=== PATIENT | female | born 1960 | race Caucasian/White ===

== ENCOUNTER 2023-07-14 23:06 | Inpatient (IN) | payer OTHER, SELFPAY ==
[2023-07-14] VITALS (7 sets, daily range): BP systolic 147–161; BP diastolic 88–99; PULSE 71; RESP 18; TEMP 36.4; O2SAT 90–100; BMI 23.3
--- NOTE | 2023-07-14 23:19 | ED.ABDPAIN1 ---
HPI - Abdominal Pain General Chief Complaint: Nausea/Vomiting/Diarrhea Stated Complaint: BLOODY STOOL Time Seen by Provider: 07/14/23 23:15 History of Present Illness HPI narrative: presents complaining of abdominal pain that started in the last 2-3 hours. Associated with recurrent vomiting and diarrhea. Diarrhea was watery but now is bloody. No injury. No fever. Past surgery hysterectomy when she was age 20s MD elicited complaint: Reports abdominal pain Related Data Home Medications Medication Instructions Recorded Confirmed aspirin 81 mg tablet,delayed 81 mg PO DAILY 07/15/23 07/15/23 release (Adult Aspirin Regimen) carvedilol 3.125 mg tablet 3.125 mg PO BID 07/15/23 07/15/23 cholecalciferol (vitamin D3) 125 125 mcg PO DAILY 07/15/23 07/15/23 mcg (5,000 unit) capsule clotrimazole-betamethasone 1 1 applic topical DAILY 07/15/23 07/15/23 %-0.05 % topical cream lisinopril 2.5 mg tablet 2.5 mg PO DAILY 07/15/23 07/15/23 Allergies Allergy/AdvReac Type Severity Reaction Status Date / Time No Known Drug Allergies Allergy Verified 07/14/23 23:12 Review of Systems ROS Status of ROS 10 or more systems reviewed and unremarkable except as noted in history and below [facility] Social History Smoking status: Never smoker Exam Constitutional Vital Signs, click to edit/add: Last Vital Signs Temp 97.9 F 07/15/23 02:28 Pulse 71 07/14/23 23:09 Resp 18 07/14/23 23:09 BP 138/76 07/15/23 01:30 Pulse Ox 100 07/15/23 01:50 O2 Del Method Room Air 07/14/23 23:09 Common normals: average body habitus, oriented x3, healthy appearing, alert and well nourished General appearance: in distress Eye Common normals: EOMs intact bilaterally and conjunctivae normal Respiratory Common normals: normal respiratory effort, no retractions, no use of accessory muscles and clear to auscultation bilaterally Cardio Common normals: S1 normal heart sound and S2 normal heart sound Rate: tachycardic GI Rectal Exam - Female: tenderness Other: suprapubic tenderness Extremity Common normals: normal to inspection and full ROM Neuro Common normals: oriented x3, CN's II-XII intact bilaterally, moves all extremities and no focal motor deficits Psych Appearance: grossly normal Course Vital Signs Vital signs: Vital Signs Temperature 97.5 F L 07/14/23 23:09 Pulse Rate 71 07/14/23 23:09 Respiratory Rate 18 07/14/23 23:09 Blood Pressure 148/88 H 07/14/23 23:09 Pulse Oximetry 98 07/14/23 23:09 Oxygen Delivery Method Room Air 07/14/23 23:09 Temperature 97.9 F 07/15/23 02:28 Pulse Rate 71 07/14/23 23:09 Respiratory Rate 18 07/14/23 23:09 Blood Pressure 138/76 07/15/23 01:30 Pulse Oximetry 100 07/15/23 01:50 Oxygen Delivery Method Room Air 07/14/23 23:09 MDM - Abdominal Pain MDM Narrative Medical decision making narrative: patient presents with recurrent vomiting, abdominal pain and diarrhea. Diarrhea watery at first and then she also passed some blood. no fever. CBC WNL. CT with edema of the colon from the splenic flexure thru the mid sigmoid. Patient was quite painful requiring Dilaudid to treat her pain. Discussed with the hospitalist. Patient ordered cipro and flagyl and accepted for admission Lab Data Labs: Lab Results 07/14/23 Range/Units 23:15 WBC 8.4 (4.0-11.0) 10^3/uL RBC 4.16 L (4.20-5.40) 10^6/uL Hgb 13.0 (12.0-16.0) g/dL Hct 40.5 (36.0-48.0) % MCV 97.4 (81.0-99.0) fL MCH 31.3 (26.7-34.0) pg MCHC 32.1 (29.9-35.2) g/dL RDW 12.1 (11.0-15.0) % Plt Count 296 (150-450) 10^3/uL MPV 9.0 L (9.5-13.5) fL Neut % (Auto) 71.6 (43.0-75.0) % Lymph % (Auto) 17.0 L (20.5-60.0) % [place] % (Auto) 10.5 (1.7-12.0) % Eos % (Auto) 0.1 L (0.9-7.0) % Baso % (Auto) 0.6 (0.2-2.0) % Neut # (Auto) 6.0 (1.4-6.5) 10^3/uL Lymph # (Auto) 1.4 (1.2-3.8) 10^3/uL [place] # (Auto) 0.9 H (0.3-0.8) 10^3/uL Eos # (Auto) 0.0 (0.0-0.7) 10^3/uL Baso # (Auto) 0.1 (0.0-0.1) 10^3/uL Abs Immat Gran (auto) 0.02 (0.00-0.03) 10^3/uL Imm/Tot Granulo (auto) 0.2 (0.0-0.5) % Sodium 140 (136-145) mmol/L Potassium 3.6 (3.5-5.1) mmol/L Chloride 101 (98-107) mmol/L Carbon Dioxide 30.9 (21.0-32.0) mmol/L Anion Gap 11.7 BUN 12.0 (7.0-18.0) mg/dL Creatinine 0.96 (0.55-1.02) mg/dL Est GFR ( Amer) >60 (>=60) Est GFR (Non-Af Amer) 59 L (>=60) BUN/Creatinine Ratio 12.5 Glucose 109 H (74-106) mg/dL Lactate 0.9 (0.4-2.0) mmol/L Calcium 9.2 (8.5-10.1) mg/dL Total Bilirubin 0.4 (0.2-1.0) mg/dL AST 14 L (15-37) U/L ALT 20 (14-59) U/L Alkaline Phosphatase 64 (46-116) U/L Troponin I High Sens 5.7 (4.0-51.3) pg/mL Total Protein 7.1 (6.4-8.2) g/dL Albumin 4.1 (3.4-5.0) g/dL Globulin 3.0 g/dL Albumin/Globulin Ratio 1.4 Lipase 21.0 (16.0-77.0) U/L Imaging Data CT scan - abdomen: Radiologist's impression: SUZETTE PIERRE MRN: [id number] date: 1960 Sex: F Assigned Patient Location: ER Current Patient Location: ER Accession/Order Number: [id number] Exam Date: 07/14/2023 23:59 Report Date: 07/15/2023 02:26 At the request of: PARRISH CAMERON Procedure: CT angio abdomen pelvis EXAM: CT angio abdomen pelvis HISTORY: Ischemic bowel. COMPARISON: None. TECHNIQUE: CTA of the abdomen and pelvis obtained with IV contrast. FINDINGS: Lung bases are clear. No pleural or pericardial fluid. No adrenal mass or retroperitoneal lymphadenopathy. No obstructive uropathy. Renal enhancement is symmetrical. No biliary or pancreatic ductal dilatation. No evidence of bowel obstruction. There is circumferential wall thickening and edema of the colon from the splenic flexure through the mid sigmoid. No pneumatosis or pneumoperitoneum. Appendix has been removed. No pelvic adenopathy or ascites. Uterus is absent. Bladder is normal. The abdominal aorta is normal in course and caliber. Celiac artery and SMA are patent. MARIUSZ is patent. Bilateral renal arteries are patent. CT/CT angio abdomen pelvis IMPRESSION: 1. Uncomplicated long segment descending colitis. This could be infectious, inflammatory, or ischemic in nature. 2. Normal aortic caliber. Branch vessels are patent. 3. Prior appendectomy and hysterectomy. Electronically authenticated by: ROSAS TRIMBLE Date: 07/15/2023 02:26 Dictated By: Rosas Trimble M.D. Signed By: 07/15/23 0228 Discharge Plan Discharge Chief Complaint: Nausea/Vomiting/Diarrhea Clinical Impression: Acute colitis Patient Disposition: Admitted as Observation
[2023-07-14] MEDS: 0.9 % SODIUM CHLORIDE 1,000 ML 999 ML IV (23:29)
[2023-07-14] MEDS: ONDANSETRON PF 4 MG/2 ML VIAL IV (23:29)
[2023-07-14] MEDS: HYDROMORPHONE HCL 1 MG/ML CARTRIDGE IVP (23:29)
[2023-07-14 23:32] LABS: Basophils Absolute Auto 0.1 10^3/uL (0.0-0.1); Basophils Percent Auto 0.6 % (0.2-2.0); Eosinophils Percent Auto 0.1 % (0.9-7.0); Hematocrit 40.5 % (36.0-48.0); Immature Granulocytes Abs Auto 0.02 10^3/uL (0.00-0.03); Immature Granulocytes Pct Auto 0.2 % (0.0-0.5); Lymphocytes Absolute Auto 1.4 10^3/uL (1.2-3.8); Mean Corpuscular HGB Conc 32.1 g/dL (29.9-35.2); Mean Corpuscular Hemoglobin 31.3 pg (26.7-34.0); Mean Corpuscular Volume 97.4 fL (81.0-99.0); Monocytes Absolute Auto 0.9 10^3/uL (0.3-0.8); Monocytes Percent Auto 10.5 % (1.7-12.0); Neutrophils Percent Auto 71.6 % (43.0-75.0); Platelet Count 296 10^3/uL (150-450); Red Blood Count 4.16 10^6/uL (4.20-5.40); Red Cell Distribution Width 12.1 % (11.0-15.0); White Blood Count 8.4 10^3/uL (4.0-11.0)
[2023-07-14 23:50] LABS: Lactate/Lactic Acid 0.9 mmol/L (0.4-2.0)
[2023-07-15] VITALS (39 sets, daily range): BP systolic 90–162; BP diastolic 57–84; PULSE 57–97; RESP 16–20; TEMP 36.4–37; O2SAT 85–100; BMI 25.4
[2023-07-15] LABS: Alanine Aminotransferase 20 U/L (14-59); Albumin Globulin Ratio 1.4; Albumin Level 4.1 g/dL (3.4-5.0); Alkaline Phosphatase 64 U/L (46-116); Anion Gap 11.7; Aspartate Amino Transferase 14 U/L (15-37); BUN Creatinine Ratio 12.5; Bilirubin Total 0.4 mg/dL (0.2-1.0); Calcium 9.2 mg/dL (8.5-10.1); Carbon Dioxide 30.9 mmol/L (21.0-32.0); Chloride 101 mmol/L (98-107); Estimated GFR (African America >60 (>=60); Estimated GFR (Non-African Ame 59 (>=60); Glucose 109 mg/dL (74-106); Potassium 3.6 mmol/L (3.5-5.1); Sodium 140 mmol/L (136-145); Total Protein 7.1 g/dL (6.4-8.2); Troponin I High Sensitivity 5.7 pg/mL (4.0-51.3)
--- NOTE | 2023-07-15 00:02 | PC.NURSE ---
pt presents to ED because patient states that she had a gas station wrap around 6:30pm. pt states around 8pm pt suddenly had n/v and blood diarrhea. pt states she was having bright red blood from rectum. on arrival to ED pt anxious and crying. daughter at bedside and answer questions for patient. pt c/o lower abdominal pain as well. deneis any problems with urinating. normal bowel movements besides the diarrhea. pt denies hx of hemorrhoids or rectal bleeding in the past.
[2023-07-15] MEDS: HYDROMORPHONE HCL 1 MG/ML CARTRIDGE IVP (01:14)
[2023-07-15] MEDS: PROMETHAZINE HCL 25 MG/ML VIAL 12.5 MG IV (01:15)
[2023-07-15] MEDS: CIPROFLOXACIN IN 5 % DEXTROSE 400 MG/200 ML PIGGYBACK 200 MG IV (03:30)
[2023-07-15] MEDS: HYDROMORPHONE HCL 0.5 MG/0.5 ML SYRINGE IV ×2 (05:10→09:30)
[2023-07-15] MEDS: ONDANSETRON PF 4 MG/2 ML VIAL IV (05:10)
[2023-07-15] MEDS: DEXTROSE 5 %-0.45 % SOD CHLORD 1,000 ML 100 ML IV (05:11)
--- NOTE | 2023-07-15 05:31 | P.PN_ITS ---
Progress Note: Subjective Subjective Interval history: Patient is a 62-year-old female with history of HTN presenting with complaint of abdominal pain. Patient reports that she developed sudden onset of mid lower abdominal pain last night around 7:38 PM. She reports that this was followed by 2 bouts of nonbloody vomiting and subsequently developed significant diarrhea. Reports having approximately 10-12 bouts of diarrhea overnight which was bright red blood. Last BM was in the ED x2 upon initial arrival but has not had any recurrence since that time. She denies any fever or chills. No previous episodes prior to this. She denies any use of NSAIDs but does take a baby aspirin daily. Her last colonoscopy was approximately 5 to 6 years ago and thinks that she may have had polyps but does not recall. States that she was talking to her family nurse practitioner about having a repeat colonoscopy soon at the time of her last office visit but nothing scheduled to date. In the ED, vital signs were essentially stable and afebrile. Labs were completely normal including CBC, CMP, lipase, and troponin. CT abdomen and pelvis noted for uncomplicated descending colitis. Noted prior appendectomy and hysterectomy. Patient was treated in the ED with Dilaudid 1 mg x 2 given severe intractable abdominal pain, Zofran, Cipro and Flagyl. It was noted that patient reportedly desatted briefly after Dilaudid to approximately 90% RA as per RN at bedside therefore is requesting O2 nasal cannula. At the time seen, patient is lethargic but able to give some history although limited. Patient is being admitted to the hospitalist service for further management. Exam Constitutional Vital Signs, click to edit/add: Last Vital Signs Temp 97.6 F 07/15/23 03:48 Pulse 72 07/15/23 03:48 Resp 20 07/15/23 03:48 BP 162/84 H 07/15/23 03:48 Pulse Ox 97 07/15/23 03:48 O2 Del Method Room Air 07/15/23 03:48 Exam limitations: altered mental status General appearance: cooperative and well developed HENSC Common normals: normocephalic Head and scalp: normal to inspection and normocephalic Eye Common normals: PERRL and EOMs intact bilaterally General eye: normal appearance of both eyes Chest Common normals: inspection of chest normal and palpation of chest normal Cardio Common normals: no JVD, regular rate and regular rhythm Rate: regular rate Rhythm: regular rhythm Heart sounds: S1 normal and S2 normal GI Inspection: normal to inspection Auscultation: hyperactive bowel sounds Palpation: soft and tender Details: periumbilical Extremity Common normals: normal to inspection and full ROM Neuro Common normals: oriented x3 and CN's II-XII intact bilaterally Sensorium/orientation: lethargic Psych Common normals: mental status grossly normal Appearance: grossly normal Attitude: calm Progress Note: Objective Labs Labs: Short CBC 07/14/23 Range/Units 23:15 WBC 8.4 (4.0-11.0) 10^3/uL Hgb 13.0 (12.0-16.0) g/dL Hct 40.5 (36.0-48.0) % Plt Count 296 (150-450) 10^3/uL BMP 07/14/23 23:15 Sodium 140 Potassium 3.6 Chloride 101 Carbon Dioxide 30.9 BUN 12.0 Creatinine 0.96 Glucose 109 H Calcium 9.2 Liver Function 07/14/23 Range/Units 23:15 Total Bilirubin 0.4 (0.2-1.0) mg/dL AST 14 L (15-37) U/L ALT 20 (14-59) U/L Alkaline Phosphatase 64 (46-116) U/L Albumin 4.1 (3.4-5.0) g/dL Imaging CT scan - abdomen: Radiologist's impression: CT abdomen with uncomplicated descending colitis. Also noted for appendectomy and hysterectomy. Progress Note: A&P Assessment and Plan (1) Acute colitis: Plan Acute colitis involving descending colon -As noted per CT abdomen uncomplicated descending colitis -Maintain n.p.o., IV fluids -Received Cipro and Flagyl in the ED. Will place on Zosyn for now -As needed IV Dilaudid but will decrease to 0.5 mg every 4 hours as needed and add holding parameters. Given reported patient desatted to 90% RA, RN has requested for O2 nasal cannula which has been ordered. We will also add continuous pulse ox for now and will reassess further need in 24 hours Bright red blood per rectum/lower GI bleed -Noted in the setting of acute colitis -CBC was completely normal on admission. Will repeat CBC in a.m. and monitor H&H closely -Patient denies any NSAID use. Does take a baby aspirin daily which will be held for now -Check occult stool Nausea/vomiting/diarrhea -Secondary to acute colitis -As needed Zofran -Reports approximately 10-12 bouts of diarrhea at home. Had 2 BMs in the ED upon initial arrival, none since that time. Monitor for now -IV fluids HTN, controlled -Hold home Coreg, lisinopril -As needed IV hydralazine for now DVT prophylaxis SCDs for now Full code Telemedicine Attestation Telemedicine Attestation I conducted this encounter from [MD] via secure live, [id number] video conference with the patient, located at [facility] with [Fernando SHRESTHA]. Prior to the interview, the risks and benefits of telemedicine were discussed with the patient and verbal consent was obtained.
[2023-07-15] MEDS: METRONIDAZOLE/SODIUM CHLORIDE 500 MG/100 ML PREMIX 100 MG IV (05:50)
[2023-07-15 07:28] LABS: Hematocrit 33.9 % (36.0-48.0); Hemoglobin 11.2 g/dL (12.0-16.0); Mean Corpuscular Hemoglobin 31.8 pg (26.7-34.0); Mean Corpuscular Volume 96.3 fL (81.0-99.0); Mean Platelet Volume 8.7 fL (9.5-13.5); Platelet Count 224 10^3/uL (150-450); Red Blood Count 3.52 10^6/uL (4.20-5.40); Red Cell Distribution Width 12.3 % (11.0-15.0); White Blood Count 7.3 10^3/uL (4.0-11.0)
--- NOTE | 2023-07-15 08:50 | CM.NOTE ---
Rounds made with Dr. Ramírez. Asking for a drink water-currently NPO. Dr. Ramírez will review her labs to determine if she can have water. No plan for discharge today.
[2023-07-15] MEDS: LISINOPRIL 5 MG TABLET 2.5 MG PO (09:34)
[2023-07-15] MEDS: CARVEDILOL 3.125 MG TABLET PO ×2 (09:34→20:08)
[2023-07-15] MEDS: PIPERACILLIN SODIUM/TAZOBACTAM 3.375 GM in 0.9 % SODIUM CHLORIDE 50 ML IV ×2 (09:38→17:28)
[2023-07-15] MEDS: CLOTRIMAZOLE TOPICAL (09:39)
[2023-07-15] MEDS: BETAMETHASONE DIP TOPICAL (09:39)
--- NOTE | 2023-07-15 11:46 | P.HP_ITS ---
Pt seen and examined at 0730 this am - 07/15 Reviewed Notes from BENEFITS SPECIALIST - agreee with assessments Hx Takotsubo cardiomyopathy - pt states this has resolved but still follows with cardiology. Hypertension on admission likely pain related - better now. H&P: HPI History of Present Illness Chief complaint: BLOODY STOOL Narrative: Date/Time of exam: 07/15/23 1050 This is a 62-year-old female patient with a past medical history as outlined below including CAD s/p [place] 15 months ago with associated Takotsubo cardiomyopathy, hypertension, and health-related anxiety; who presented to the ED yesterday evening complaining of acute onset of severe abdominal pain with associated bloody diarrhea and vomiting. The patient reports feeling her at her baseline yesterday. She ate dinner around 6 PM but had abrupt onset of sharp stabbing suprapubic pain accompanied by diarrhea and 1 episode of vomiting lanny und 8 PM. She had multiple recurrent episodes of diarrhea which were initially red-tinged, but became increasingly bloody culminating in clear wild red watery stools. As her pain was severe and her diarrhea was persistent she presented to the ED for further evaluation. Work-up in the ED revealed unremarkable lab values on CBC and BMP. A CT of the abdomen was obtained which noted uncomplicated long-segment descending colitis that could be infectious, inflammatory, or ischemic in nature. The patient required several doses of IVP Dilaudid in the ED to obtain adequate pain control. She was given IVP antibiotics and admitted to the hospitalist service in observation for acute colitis, suspected infectious and further work up to assess for inflammatory colitis. At the time of my exam the patient is resting comfortably in bed. She reports that her pain is adequately controlled at this time but that it becomes very severe when her pain medication begins to wear off. She reports that she has had no further episodes of bloody diarrhea since the ED where she received IVPB Cipro and Flagyl. Admitting antibiotics was adjusted to Zosyn overnight for more [place] broad gram-negative and anaerobic coverage. The patient's hemoglobin has remained stable but has dropped from 13-11.2 overnight. She denies any shortness of breath, dizziness, or severe fatigue. Again, no further bloody stools for the last 12 hours. She remains afebrile since arrival in the ED. Nursing noted mild respiratory depression overnight after the patient received Dilaudid with O2 sats dropping to 90%. Supplemental O2 was added along with a continuous pulse ox monitoring. Patient has been started on a clear liquid diet and is tolerating this well so far. We will attempt to transition her pain control to p.o. preparations for improved pain management, but leave IVP Dilaudid ordered for breakthrough pain. General surgery consult for colonoscopy will be considered pending clinical course. Review of Systems ROS Status of ROS 10 or more systems reviewed and unremarkable except as noted in history and below [facility] Medical History (Updated 07/15/23 @ 14:44 by Carmen Wilson NP) CAD (coronary artery disease) ?I25.10 - Atherosclerotic heart disease of [place] coronary artery without angina pectoris (ICD-10) Social History Smoking status: Never smoker Meds Home Medications and Allergies Home Medications Medication Instructions Recorded Confirmed Type aspirin 81 mg tablet,delayed 81 mg PO DAILY 07/15/23 07/15/23 History release (Adult Aspirin Regimen) carvedilol 3.125 mg tablet 3.125 mg PO BID 07/15/23 07/15/23 History cholecalciferol (vitamin D3) 125 125 mcg PO DAILY 07/15/23 07/15/23 History mcg (5,000 unit) capsule clotrimazole-betamethasone 1 1 applic topical DAILY 07/15/23 07/15/23 History %-0.05 % topical cream lisinopril 2.5 mg tablet 2.5 mg PO DAILY 07/15/23 07/15/23 History Allergies Allergy/AdvReac Type Severity Reaction Status Date / Time No Known Drug Allergies Allergy Verified 07/14/23 23:12 Exam Constitutional Vital Signs, click to edit/add: Last Vital Signs Temp 97.8 F 07/15/23 06:00 Pulse 65 07/15/23 06:00 Resp 20 07/15/23 06:00 BP 130/71 07/15/23 09:34 Pulse Ox 97 07/15/23 11:43 O2 Del Method Nasal Cannula 07/15/23 11:22 O2 Flow Rate 1 07/15/23 11:22 Common normals: no apparent distress, oriented x3, alert and well nourished General appearance: cooperative Orientation/consciousness: Yes awake HENMO Common normals: normocephalic, head/scalp atraumatic, hearing grossly normal bilaterally, external ears normal, external nose normal and moist oral mucous membranes Head and scalp: normocephalic and atraumatic Face and sinus: normal facial exam Nose: external nose normal External ear: external ears normal Eye Common normals: PERRL, EOMs intact bilaterally, conjunctivae normal and no scleral icterus General eye: normal appearance of both eyes Alignment: alignment normal Eyelid: eyelids normal Conjunctiva: conjunctiva(e) normal Pupil: PERRL Neck & C-Spine Common normals: full ROM, supple and no JVD Chest Common normals: inspection of chest normal Chest: symmetrical chest wall rise Respiratory Common normals: normal respiratory effort, no retractions, no use of accessory muscles and clear to auscultation bilaterally Effort & inspection: able to speak in complete sentences Auscultation: clear to auscultation bilaterally Cardio Common normals: no JVD, regular rate, regular rhythm, S1 normal heart sound, S2 normal heart sound, no gallops, no clicks, no murmurs, no rub and peripheral pulses 2+ throughout Rate: regular rate Rhythm: regular rhythm Heart sounds: S1 normal and S2 normal Peripheral pulses: pulses 2+ throughout GI Common normals: Normal to inspection, nondistended, normoactive bowel sounds present, soft to palpation, no hepatosplenomegaly, no masses and no bruits Palpation: soft, tender (Primarily suprapubic, mild radiation bilaterally) and no hepatosplenomegaly; not firm, no guarding, not rigid and no rebound tenderness present Bladder/kidney exam: bladder normal to palpation Back & Pelvis Common normals: thoracic and lumbar spine normal to inspection Extremity Common normals: normal capillary refill and no pedal edema General: normal exam except as noted; no clubbing and no cyanosis Neuro Jeb Coma Scale: GCS not evaluated Common normals: oriented x3, CN's II-XII intact bilaterally, moves all extremities, no focal motor deficits and no sensory deficits noted Sensorium/orientation: awake and alert Speech: speech normal Motor exam: strength 5/5 throughout Psych Common normals: mental status grossly normal, thought process normal, affect normal and activity/motor behavior normal Thought process: normal thought process Results Labs Labs: Short CBC 07/14/23 07/15/23 Range/Units 23:15 07:16 WBC 8.4 7.3 (4.0-11.0) 10^3/uL Hgb 13.0 11.2 L (12.0-16.0) g/dL Hct 40.5 33.9 L (36.0-48.0) % Plt Count 296 224 (150-450) 10^3/uL BMP 07/14/23 23:15 Sodium 140 Potassium 3.6 Chloride 101 Carbon Dioxide 30.9 BUN 12.0 Creatinine 0.96 Glucose 109 H Calcium 9.2 Liver Function 07/14/23 Range/Units 23:15 Total Bilirubin 0.4 (0.2-1.0) mg/dL AST 14 L (15-37) U/L ALT 20 (14-59) U/L Alkaline Phosphatase 64 (46-116) U/L Albumin 4.1 (3.4-5.0) g/dL Pulse Oximetry Attestation: I have reviewed the pertinent pulse oximetry results. Imaging CT scan - abdomen: Attestation: I have reviewed the pertinent imaging results. Radiologist's impression: IMPRESSION: 1. Uncomplicated long segment descending colitis. This could be infectious, inflammatory, or ischemic in nature. 2. Normal aortic caliber. Branch vessels are patent. 3. Prior appendectomy and hysterectomy. Assessment and Plan Assessment and Plan (1) Acute colitis: Assessment and Plan: ACUTE * Adm inpatient * Strongly suspect infectious etiology (w/ bloody diarrhea), but inflammatory is not completely ruled out * Continue IVPB Zosyn for broad gram neg/anaerobic coverage * Likely d/c on PO cipro/flagyl * GI stool panel ordered - may not be able to obtain as diarrhea appears to have stopped * ESR, CRP, Stool calprotectin ordered to assess for inflammatory changes * See GI bleeding below * Consider Surgical consult for colonoscopy pending clinical course * Percocet PO for pain - reserve IVP Dilaudid for breakthrough pain not controlled by Percocet * CBC, CMP daily (2) Acute GI bleeding: Assessment and Plan: ACUTE * Associated w/ suspected infectious colitis - see above * 2gm drop in hgb overnight but bloody stool output appears to have stopped * May reflect hemodilution at least in part * Pt remains completely asymptomatic of blood loss anemia * Change IVF to LR at 75/hr as pt is now drinking clear liquids * Monitor w/ HH q6h * Consider PRBC transfusions for Hgb <7 or if signficantly symptomatic * Hold home ASA/NSAIDS for now while active bleeding is suspected * CBC daily (3) Intractable abdominal pain: Assessment and Plan: ACUTE * 2/2 colitis * Pain management as above (4) CAD (coronary artery disease): Assessment and Plan: CHRONIC * Continue home BB and ACEi * Hold ASA for now d/t active GI bleeding
[2023-07-15] MEDS: OXYCODONE HCL/ACETAMINOPHEN 5MG/325MG 2 TAB PO (12:08)
[2023-07-15 14:01] LABS: Hematocrit 33.9 % (36.0-48.0); Hemoglobin 10.9 g/dL (12.0-16.0)
[2023-07-15 15:07] LABS: C Reactive Protein 1.5 mg/dL (<=1.0)
[2023-07-15 15:39] LABS: Erythrocyte Sedimentation Rate 8 mm/hr (<=30)
[2023-07-15] MEDS: LACTATED RINGER'S SOLUTION 1,000 ML 75 ML IV (15:41)
[2023-07-15] MEDS: ALPRAZOLAM 0.25 MG TABLET PO (17:32)
[2023-07-15] MEDS: ACETAMINOPHEN 325 MG TABLET 650 MG PO (17:32)
[2023-07-15 17:58] LABS: Adenovirus F 40/41 NOT DETECTED (NOT DETECTE); Astrovirus NOT DETECTED (NOT DETECTE); Campylobacter NOT DETECTED (NOT DETECTE); Cryptosporidium NOT DETECTED (NOT DETECTE); Cyclospora cayetanensis NOT DETECTED (NOT DETECTE); Entamoeba histolytica NOT DETECTED (NOT DETECTE); Enteroaggregative E.coli NOT DETECTED (NOT DETECTE); Enteropathogenic E.coli NOT DETECTED (NOT DETECTE); Enterotoxigenic E. coli NOT DETECTED (NOT DETECTE); Giardia lamblia NOT DETECTED (NOT DETECTE); Norovirus GI/GII NOT DETECTED (NOT DETECTE); Plesiomonas shigelloides NOT DETECTED (NOT DETECTE); Rotavirus A NOT DETECTED (NOT DETECTE); Salmonella NOT DETECTED (NOT DETECTE); Sapovirus NOT DETECTED (NOT DETECTE); Shiga-like toxin-producing E.C NOT DETECTED (NOT DETECTE); Shigella/Enteroinvasive E.coli NOT DETECTED (NOT DETECTE); Vibrio NOT DETECTED (NOT DETECTE); Vibrio cholerae NOT DETECTED (NOT DETECTE); Yersinia enterocolitica NOT DETECTED (NOT DETECTE)
[2023-07-15 19:30] LABS: Hematocrit 30.9 % (36.0-48.0); Hemoglobin 10.1 g/dL (12.0-16.0)
[2023-07-16] VITALS (13 sets, daily range): BP systolic 122–170; BP diastolic 66–79; PULSE 57–63; RESP 16–18; TEMP 36.7–37.1; O2SAT 90–99
[2023-07-16] MEDS: PIPERACILLIN SODIUM/TAZOBACTAM 3.375 GM in 0.9 % SODIUM CHLORIDE 50 ML IV ×3 (00:40→17:20)
[2023-07-16] MEDS: OXYCODONE HCL/ACETAMINOPHEN 5MG/325MG 1 TAB PO ×2 (00:40→08:54)
[2023-07-16 00:43] LABS: Hematocrit 32.3 % (36.0-48.0); Hemoglobin 10.3 g/dL (12.0-16.0)
--- NOTE | 2023-07-16 04:38 | RESP.RT ---
decreased down to room air
[2023-07-16] MEDS: LACTATED RINGER'S SOLUTION 1,000 ML 75 ML IV ×2 (04:50→17:20)
[2023-07-16 06:47] LABS: Basophils Percent Auto 0.5 % (0.2-2.0); Eosinophils Percent Auto 0.2 % (0.9-7.0); Hematocrit 31.7 % (36.0-48.0); Hemoglobin 10.2 g/dL (12.0-16.0); Immature Granulocytes Abs Auto 0.01 10^3/uL (0.00-0.03); Immature Granulocytes Pct Auto 0.2 % (0.0-0.5); Lymphocytes Absolute Auto 1.5 10^3/uL (1.2-3.8); Lymphocytes Percent Auto 22.6 % (20.5-60.0); Mean Corpuscular HGB Conc 32.2 g/dL (29.9-35.2); Mean Corpuscular Hemoglobin 32.1 pg (26.7-34.0); Mean Corpuscular Volume 99.7 fL (81.0-99.0); Mean Platelet Volume 8.9 fL (9.5-13.5); Monocytes Absolute Auto 0.7 10^3/uL (0.3-0.8); Monocytes Percent Auto 10.8 % (1.7-12.0); Neutrophils Absolute Auto 4.2 10^3/uL (1.4-6.5); Neutrophils Percent Auto 65.7 % (43.0-75.0); Platelet Count 188 10^3/uL (150-450); Red Blood Count 3.18 10^6/uL (4.20-5.40); Red Cell Distribution Width 12.5 % (11.0-15.0); White Blood Count 6.4 10^3/uL (4.0-11.0)
[2023-07-16 07:14] LABS: Alanine Aminotransferase 20 U/L (14-59); Albumin Globulin Ratio 1.1; Albumin Level 2.7 g/dL (3.4-5.0); Alkaline Phosphatase 49 U/L (46-116); Anion Gap 11.1; Aspartate Amino Transferase 33 U/L (15-37); BUN Creatinine Ratio 6.6; Bilirubin Total 0.4 mg/dL (0.2-1.0); Calcium 7.9 mg/dL (8.5-10.1); Carbon Dioxide 28.2 mmol/L (21.0-32.0); Chloride 107 mmol/L (98-107); Estimated GFR (African America >60 (>=60); Estimated GFR (Non-African Ame >60 (>=60); Globulin 2.5 g/dL; Glucose 89 mg/dL (74-106); Potassium 3.3 mmol/L (3.5-5.1); Sodium 143 mmol/L (136-145); Total Protein 5.2 g/dL (6.4-8.2)
--- NOTE | 2023-07-16 08:40 | CM.NOTE ---
Rounding with Dr. Ramírez. Pt. tearful stating she is still having stools and is waiting on nursing to give her medications and cream . Dr. Ramírez discussed potential for staying until tomorrow unless she feels better this afternoon. Continue to follow patient for any anticipated discharge needs.
[2023-07-16] MEDS: LISINOPRIL 5 MG TABLET 2.5 MG PO (08:52)
[2023-07-16] MEDS: CARVEDILOL 3.125 MG TABLET PO ×2 (08:54→21:15)
[2023-07-16] MEDS: BETAMETHASONE DIP TOPICAL ×2 (08:55→21:14)
[2023-07-16] MEDS: CLOTRIMAZOLE TOPICAL ×2 (08:55→21:14)
[2023-07-16 10:08] LABS: Hematocrit 34.5 % (36.0-48.0)
[2023-07-16] MEDS: HYOSCYAMINE SULFATE 0.125 MG TAB.SUBL SL ×2 (11:17→17:20)
[2023-07-16] MEDS: ALPRAZOLAM 0.25 MG TABLET PO ×2 (12:50→21:15)
--- NOTE | 2023-07-16 13:12 | P.PN_ITS ---
Seen and eval this am [id number] Pt emotional - stress about condition as bleeding is persisting Exam with persistent LLQ tenderness Maintain current medications, agree wiht input and plan from [employer] Progress Note: Subjective Subjective Interval history: Date/Time of exam: 07/16/23 0912 The patient is sitting up in bed watching television at the time of my exam. She reports significant improvement in her pain control with p.o. Percocet and has not required dilauded x 12+ hrs. She notes onset of cramping pain to her lower abdomen after drinking liquids. She admits to significant anxiety about her health and was frequently tearful during my exam. She denies pain as a source of her tears but endorses anxiety. She notes that her bleeding per rectum has slowed down but does continue. I was able to visualize liquid bloody stool this morning. The patient notes a little more fecal content in the stools than yesterday, but they are still primarily bloody. Her hemoglobin remained stable overnight on every 6 hr H&H checks. The patient is eager to avoid a colonoscopy at this time, however since she continues to have migdalia bloody stools we have consulted general surgery for possible colonoscopy. We appreciate Dr. Gusman' assistance with this patient's care. Exam Constitutional Vital Signs, click to edit/add: Last Vital Signs Temp 98.2 F 07/16/23 05:04 Pulse 57 L 07/16/23 05:36 Resp 16 07/16/23 05:04 BP 170/74 H 07/16/23 08:52 Pulse Ox 98 07/16/23 11:16 O2 Del Method Room Air 07/16/23 11:16 O2 Flow Rate 1 07/16/23 04:38 Common normals: no apparent distress, oriented x3, alert and well nourished General appearance: cooperative Orientation/consciousness: Yes awake HENMT Common normals: normocephalic, head/scalp atraumatic, hearing grossly normal bilaterally, external ears normal, external nose normal and moist oral mucous membranes Head and scalp: normocephalic and atraumatic Face and sinus: normal facial exam Nose: external nose normal External ear: external ears normal Eye Common normals: PERRL, EOMs intact bilaterally, conjunctivae normal and no scleral icterus General eye: normal appearance of both eyes Alignment: alignment normal Eyelid: eyelids normal Conjunctiva: conjunctiva(e) normal Pupil: PERRL Chest Common normals: inspection of chest normal Chest: symmetrical chest wall rise Respiratory Common normals: normal respiratory effort, no retractions, no use of accessory muscles and clear to auscultation bilaterally Effort & inspection: able to speak in complete sentences Auscultation: clear to auscultation bilaterally Cardio Common normals: no JVD, regular rate, regular rhythm, S1 normal heart sound, S2 normal heart sound, no gallops, no clicks, no murmurs, no rub and peripheral pul ses 2+ throughout Rate: regular rate Rhythm: regular rhythm Heart sounds: S1 normal and S2 normal Peripheral pulses: pulses 2+ throughout GI Common normals: Normal to inspection, nondistended, normoactive bowel sounds present, soft to palpation, no hepatosplenomegaly, no masses and no bruits Palpation: soft, tender (Primarily suprapubic, mild radiation bilaterally) and no hepatosplenomegaly; not firm, no guarding, not rigid and no rebound tenderness present Bladder/kidney exam: bladder normal to palpation Extremity Common normals: normal capillary refill and no pedal edema General: normal exam except as noted; no clubbing and no cyanosis Neuro [place] Scale: GCS not evaluated Common normals: oriented x3, CN's II-XII intact bilaterally, moves all extremities, no focal motor deficits and no sensory deficits noted Sensorium/orientation: awake and alert Speech: speech normal Motor exam: strength 5/5 throughout Psych Common normals: mental status grossly normal, thought process normal and activity/motor behavior normal Mood and affect: tearful Thought process: normal thought process Progress Note: Objective Labs Labs: Laboratory Tests 07/15/23 14:52 ESR 8 C-Reactive Protein 1.5 H Short CBC 07/15/23 07/15/23 07/16/23 Range/Units 13:40 19:21 00:32 WBC (4.0-11.0) 10^3/uL Hgb 10.9 L 10.1 L 10.3 L (12.0-16.0) g/dL Hct 33.9 L 30.9 L 32.3 L (36.0-48.0) % Plt Count (150-450) 10^3/uL 07/16/23 07/16/23 Range/Units 06:40 10:00 WBC 6.4 (4.0-11.0) 10^3/uL Hgb 10.2 L 11.0 L (12.0-16.0) g/dL Hct 31.7 L 34.5 L (36.0-48.0) % Plt Count 188 (150-450) 10^3/uL BMP 07/16/23 06:40 Sodium 143 Potassium 3.3 L Chloride 107 Carbon Dioxide 28.2 BUN 5.0 L Creatinine 0.76 Glucose 89 Calcium 7.9 L Liver Function 07/16/23 Range/Units 06:40 Total Bilirubin 0.4 (0.2-1.0) mg/dL AST 33 (15-37) U/L ALT 20 (14-59) U/L Alkaline Phosphatase 49 (46-116) U/L Albumin 2.7 L (3.4-5.0) g/dL Pulse Oximetry Attestation: I have reviewed the pertinent pulse oximetry results. Progress Note: A&P Assessment and Plan (1) Acute colitis: Assessment and Plan: ACUTE * Mildly improved * Strongly suspect infectious etiology (w/ bloody diarrhea), but inflammatory is not completely ruled out * ESR - WNL * CRP - Moderately elevated at 1.5 * Continue IVPB Zosyn for broad gram neg/anaerobic coverage * Likely d/c on PO cipro/flagyl * GI stool panel ordered - Neg for all pathogens including c-diff * Stool calprotectin - pending * See GI bleeding below * Percocet PO for pain - reserve IVP Dilaudid for breakthrough pain not controlled by Percocet * Add Levsin for cramping discomfort * Continue IVF to LR at 75/hr for more gentle hydration as pt is now drinking clear liquids * CBC, CMP daily (2) Acute GI bleeding: Assessment and Plan: ACUTE Laboratory Tests 07/14/23 07/15/23 07/15/23 23:15 07:16 13:40 Hgb 13.0 11.2 L 10.9 L 07/15/23 07/16/23 07/16/23 19:21 00:32 06:40 Hgb 10.1 L 10.3 L 10.2 L * Associated w/ suspected infectious colitis - see above * 3 gm drop in hgb since admission but remained stable overnight around 10 * BRBPR resumed late yesterday afternoon but much slower rate and less volume * May reflect hemodilution at least in part * Pt remains completely asymptomatic of blood loss anemia * C/S Dr Gusman, general surgeon * Consider colonoscopy * NPO at midnight unless Dr Gusman defers colonoscopy for now * Monitor w/ HH q8h * Consider PRBC transfusions for Hgb <7 or if signficantly symptomatic * Hold home ASA/NSAIDS for now while active bleeding is suspected * CBC daily (3) Intractable abdominal pain: Assessment and Plan: ACUTE * Improving * 2/2 colitis * Pain management as above (4) CAD (coronary artery disease): Assessment and Plan: CHRONIC * Continue home BB and ACEi * Hold ASA for now d/t active GI bleeding
[2023-07-16 13:17] LABS: Hematocrit 31.8 % (36.0-48.0); Hemoglobin 10.3 g/dL (12.0-16.0)
[2023-07-16] MEDS: ONDANSETRON PF 4 MG/2 ML VIAL IV (17:20)
[2023-07-16 21:12] LABS: Hematocrit 30.6 % (36.0-48.0); Hemoglobin 9.9 g/dL (12.0-16.0)
[2023-07-16] MEDS: ENSURE CLEAR 237 ML LIQUID PO (21:15)
[2023-07-17] VITALS: O2SAT 99
[2023-07-17] MEDS: PIPERACILLIN SODIUM/TAZOBACTAM 3.375 GM in 0.9 % SODIUM CHLORIDE 50 ML IV ×2 (00:26→08:49)
[2023-07-17 02:00] VITALS: O2SAT 97
[2023-07-17 04:40] VITALS: O2SAT 94
--- NOTE | 2023-07-17 04:46 | RESP.RT ---
patient had NC off Turned flowmeter off at this time
[2023-07-17 05:08] VITALS: BP 135/71; PULSE 54; RESP 18; TEMP 36.6; O2SAT 91
[2023-07-17 05:10] LABS: Hematocrit 31.5 % (36.0-48.0); Hemoglobin 10.1 g/dL (12.0-16.0); Mean Corpuscular HGB Conc 32.1 g/dL (29.9-35.2); Mean Corpuscular Hemoglobin 31.6 pg (26.7-34.0); Mean Corpuscular Volume 98.4 fL (81.0-99.0); Mean Platelet Volume 8.5 fL (9.5-13.5); Platelet Count 190 10^3/uL (150-450); White Blood Count 5.5 10^3/uL (4.0-11.0)
[2023-07-17 05:46] LABS: C Reactive Protein 4.4 mg/dL (<=1.0)
[2023-07-17 05:49] LABS: Alanine Aminotransferase 16 U/L (14-59); Albumin Level 2.6 g/dL (3.4-5.0); Alkaline Phosphatase 49 U/L (46-116); Aspartate Amino Transferase 17 U/L (15-37); BUN Creatinine Ratio 6.1; Bilirubin Total 0.3 mg/dL (0.2-1.0); Calcium 8.3 mg/dL (8.5-10.1); Carbon Dioxide 27.3 mmol/L (21.0-32.0); Chloride 107 mmol/L (98-107); Estimated GFR (African America >60 (>=60); Estimated GFR (Non-African Ame >60 (>=60); Globulin 2.5 g/dL; Glucose 79 mg/dL (74-106); Potassium 3.3 mmol/L (3.5-5.1); Sodium 141 mmol/L (136-145); Total Protein 5.1 g/dL (6.4-8.2)
[2023-07-17 08:39] LABS: Red Cell Distribution Width 11.9 % (11.0-15.0)
[2023-07-17] MEDS: CARVEDILOL 3.125 MG TABLET PO (08:48)
[2023-07-17] MEDS: HYOSCYAMINE SULFATE 0.125 MG TAB.SUBL SL ×2 (08:48→11:43)
[2023-07-17] MEDS: LISINOPRIL 5 MG TABLET 2.5 MG PO (08:48)
[2023-07-17] MEDS: BETAMETHASONE DIP TOPICAL (08:49)
[2023-07-17] MEDS: CLOTRIMAZOLE TOPICAL (08:49)
--- NOTE | 2023-07-17 09:10 | CM.NOTE ---
Rounds made with , will await recommendations from Dr. Gusman to plan discharge for pt.
--- NOTE | 2023-07-17 09:15 | P.GSCN_ITS ---
History of Present Illness Consult details Consult date: 07/17/23 Reason for consult: abdominal pain Requesting physician: Prince Ramírez Narrative: 62-year-old female presented to the Emergency Department Thursday night with abdominal pain and rectal bleeding. Since that time her stools have cleared of blood but she is having liquid bowel movements. She hasn't eaten much since she's been here. Last colonoscopy was eight years ago and doesn't remember if anything was found. Pain is better today unless someone palpates her abdomen. She denies any family history of colon cancer or inflammatory bowel disease. Denies any nausea or vomiting or melena. 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 Blake in [place] for this. She quit smoking fifteen months ago and prior to that smoked for many years. She's had a prior abdominal hysterectomy and bilateral salpingo-oophorectomy at age 20 and has one child. She drinks 2-3 drinks every other day or so. She had a CT scan of the abdomen and pelvis on presentation to the Emergency Department which showed inflammatory changes and possible colitis infectious versus ischemic segment between the splenic flexure and the sigmoid colon. Overall she is feeling much better than she did Thursday night and has not passed anymore blood. She is hungry this morning. She's only had very little in terms of liquids. Review of Systems ROS Status of ROS 10 or more systems reviewed and unremarkable except as noted in history and below PFSH PFSH Medical History CAD (coronary artery disease) ?I25.10 - Atherosclerotic heart disease of [place] coronary artery without angina pectoris (ICD-10) Past use of tobacco ?Z87.891 - Personal history of nicotine dependence (ICD-10) Social History Smoking status: Never smoker Meds Home Medications and Allergies Home Medications Medication Instructions Recorded Confirmed Type aspirin 81 mg tablet,delayed 81 mg PO DAILY 07/15/23 07/15/23 History release (Adult Aspirin Regimen) carvedilol 3.125 mg tablet 3.125 mg PO BID 07/15/23 07/15/23 History cholecalciferol (vitamin D3) 125 125 mcg PO DAILY 07/15/23 07/15/23 History mcg (5,000 unit) capsule clotrimazole-betamethasone 1 1 applic topical DAILY 07/15/23 07/15/23 History %-0.05 % topical cream lisinopril 2.5 mg tablet 2.5 mg PO DAILY 07/15/23 07/15/23 History ciprofloxacin HCl 500 mg tablet 500 mg PO Q12H #14 tabs 07/17/23 Rx (Cipro) metronidazole 500 mg tablet 500 mg PO BID 7 days #14 tabs 07/17/23 Rx Allergies Allergy/AdvReac Type Severity Reaction Status Date / Time No Known Drug Allergies Allergy Verified 07/14/23 23:12 Exam Constitutional Vital Signs, click to edit/add: Last Vital Signs Temp 97.8 F 07/17/23 05:08 Pulse 54 L 07/17/23 05:08 Resp 18 07/17/23 05:08 BP 135/71 07/17/23 05:08 Pulse Ox 91 L 07/17/23 05:08 O2 Del Method Room Air 07/17/23 05:08 O2 Flow Rate 1 07/16/23 04:38 Documenting provider has reviewed patient's vital signs: yes Common normals: no apparent distress, average body habitus, oriented x3, healthy appearing and well nourished Respiratory Common normals: normal respiratory effort and clear to auscultation bilaterally Auscultation: clear to auscultation bilaterally Cardio Common normals: regular rate, regular rhythm and no murmurs GI Common normals: Normal to inspection, nondistended, normoactive bowel sounds present and soft to palpation Palpation: tender Details: LLQ Neuro Common normals: oriented x3 Results Labs Labs: Abnormal lab results 07/16/23 07/16/23 07/16/23 Range/Units 10:00 13:08 21:00 RBC (4.20-5.40) 10^6/uL Hgb 11.0 L 10.3 L 9.9 L (12.0-16.0) g/dL Hct 34.5 L 31.8 L 30.6 L (36.0-48.0) % MPV (9.5-13.5) fL Potassium (3.5-5.1) mmol/L BUN (7.0-18.0) mg/dL Calcium (8.5-10.1) mg/dL C-Reactive Protein (<=1.0) mg/dL Total Protein (6.4-8.2) g/dL Albumin (3.4-5.0) g/dL 07/17/23 Range/Units 04:47 RBC 3.20 L (4.20-5.40) 10^6/uL Hgb 10.1 L (12.0-16.0) g/dL Hct 31.5 L (36.0-48.0) % MPV 8.5 L (9.5-13.5) fL Potassium 3.3 L (3.5-5.1) mmol/L BUN 5.0 L (7.0-18.0) mg/dL Calcium 8.3 L (8.5-10.1) mg/dL C-Reactive Protein 4.4 H (<=1.0) mg/dL Total Protein 5.1 L (6.4-8.2) g/dL Albumin 2.6 L (3.4-5.0) g/dL Diabetes panel 07/17/23 Range/Units 04:47 Sodium 141 (136-145) mmol/L Potassium 3.3 L (3.5-5.1) mmol/L Chloride 107 (98-107) mmol/L Carbon Dioxide 27.3 (21.0-32.0) mmol/L BUN 5.0 L (7.0-18.0) mg/dL Creatinine 0.82 (0.55-1.02) mg/dL Glucose 79 (74-106) mg/dL Calcium 8.3 L (8.5-10.1) mg/dL AST 17 (15-37) U/L ALT 16 (14-59) U/L Alkaline Phosphatase 49 (46-116) U/L Total Protein 5.1 L (6.4-8.2) g/dL Albumin 2.6 L (3.4-5.0) g/dL Calcium panel 07/17/23 Range/Units 04:47 Calcium 8.3 L (8.5-10.1) mg/dL Albumin 2.6 L (3.4-5.0) g/dL Pituitary panel 07/17/23 Range/Units 04:47 Sodium 141 (136-145) mmol/L Potassium 3.3 L (3.5-5.1) mmol/L Chloride 107 (98-107) mmol/L Carbon Dioxide 27.3 (21.0-32.0) mmol/L BUN 5.0 L (7.0-18.0) mg/dL Creatinine 0.82 (0.55-1.02) mg/dL Glucose 79 (74-106) mg/dL Calcium 8.3 L (8.5-10.1) mg/dL Adrenal panel 07/17/23 Range/Units 04:47 Sodium 141 (136-145) mmol/L Potassium 3.3 L (3.5-5.1) mmol/L Chloride 107 (98-107) mmol/L Carbon Dioxide 27.3 (21.0-32.0) mmol/L BUN 5.0 L (7.0-18.0) mg/dL Creatinine 0.82 (0.55-1.02) mg/dL Glucose 79 (74-106) mg/dL Calcium 8.3 L (8.5-10.1) mg/dL Total Bilirubin 0.3 (0.2-1.0) mg/dL AST 17 (15-37) U/L ALT 16 (14-59) U/L Alkaline Phosphatase 49 (46-116) U/L Total Protein 5.1 L (6.4-8.2) g/dL Albumin 2.6 L (3.4-5.0) g/dL All other labs normal. Imaging Abdomen CT scan report/results: report reviewed Assessment and Plan Assessment and Plan (1) Acute colitis: (2) Acute GI bleeding: (3) Intractable abdominal pain: (4) CAD (coronary artery disease): (5) Alcohol abuse: (6) Past use of tobacco: Plan Recommendation is for advancement of diet as tolerated and continue outpatient by mouth antibiotics for another seven days and have patient call my office and schedule an outpatient colonoscopy to be done within the next month as long as improvement continues. Would not want to proceed with colonoscopy with acute colitis at this time. All stool cultures have been negative but still could've been colitis or ischemia with her history of tobacco use but must also rule out inflammatory bowel disease. Patient understood all the above.
[2023-07-17 09:45] LABS: Segmented Neut Absolute Manual 3.02 10^3/uL (1.4-6.5)
[2023-07-17 09:46] LABS: Eosinophils Absolute Manual 0.22 10^3/uL (0.00-0.70); Lymphocytes Absolute Manual 1.92 10^3/uL (1.20-3.80); Monocytes Absolute Manual 0.33 10^3/uL (0.30-0.80)
--- NOTE | 2023-07-17 14:18 | P.DS_ITS ---
Patient seen and evaluated at 07 55 on 07/17/2023 Charting reviewed by nurse practitioner. No additions or corrections other than: Hypertension on admission-improved Hypokalemia-improved as well. DS: Providers Provider Date of admission: 07/15/23 02:59 Primary care physician: Non-Staff PhysicianMD Consults: 07/16/23 11:21 Consult to General Surgeon Routine Consulting Provider: Adrián Gusman Reason for consultation: Acute GI bleeding Discharging clinician: Carmen Wilson DS: Diagnosis Discharge Diagnosis (1) Acute colitis: (2) Acute GI bleeding: (3) Intractable abdominal pain: (4) CAD (coronary artery disease): (5) Alcohol abuse: (6) Past use of tobacco: DS: Summary Hospital Course Hospital Course: The patient was admitted with acute colitis, infectious versus inflammatory. She was treated with IVPB Zosyn for suspected infectious colitis. She also experienced GI bleeding with her diarrhea and significant abdominal pain. Her GI bleeding self resolved during her stay and she has been bleeding free for more than 12 hours at the time of discharge. Her hgb was monitored closely and although it dropped 3gms after admission, it remained stable above 10. Her abdominal discomfort is significantly improved and she no longer requires pain medications as its only mild cramping. Inflammatory work-up including ESR, CRP, and stool calprotectin have been initiated. ESR was with WNL, but CRP is elevated and rising. Stool for calprotectin is still pending. She was seen in consult by Dr. Silvestre as colonoscopy was considered. Dr. Silvestre differs a colonoscopy until the patient has been discharged to allow antibiotics course to be completed. The patient's diet was advanced prior to discharge and she tolerated this very well. She is being discharged home in stable condition with a prescription for Cipro and Flagyl for further 7 days (total 10-day course). She should follow-up with Dr. Silvestre within a month to schedule as a colonoscopy. She should also follow-up with her PCP within 1 to 2 weeks. Time Spent with Patient Time attestation: Total time spent providing and/or coordinating discharge services: Time spent: greater than 30 minutes Specific discharge activities: Physical exam, discussion of discharge plan, questions answered. Exam Constitutional Vital Signs, click to edit/add: Last Vital Signs Temp 97.8 F 07/17/23 05:08 Pulse 54 L 07/17/23 05:08 Resp 18 07/17/23 05:08 BP 135/71 07/17/23 05:08 Pulse Ox 91 L 07/17/23 05:08 O2 Del Method Room Air 07/17/23 05:08 O2 Flow Rate 1 07/16/23 04:38 Common normals: no apparent distress, oriented x3 and alert General appearance: cooperative Orientation/consciousness: Yes awake HENMT Common normals: normocephalic and head/scalp atraumatic Head and scalp: normocephalic and atraumatic Eye Common normals: PERRL, EOMs intact bilaterally, conjunctivae normal and no scleral icterus Conjunctiva: conjunctiva(e) normal Pupil: PERRL Neck & C-Spine Common normals: no JVD Respiratory Common normals: normal respiratory effort, no use of accessory muscles and clear to auscultation bilaterally Effort & inspection: able to speak in complete sentences and symmetric chest movement Auscultation: clear to auscultation bilaterally Cardio Common normals: no JVD, regular rate, regular rhythm, S1 normal heart sound, S2 normal heart sound, no gallops, no clicks, no murmurs, no rub and peripheral pulses 2+ throughout Rate: regular rate Rhythm: regular rhythm Heart sounds: S1 normal and S2 normal Peripheral pulses: pulses 2+ throughout GI Common normals: Normal to inspection, nondistended, normoactive bowel sounds present, soft to palpation and non-tender Palpation: soft Bladder/kidney exam: bladder normal to palpation Extremity Common normals: normal to inspection, full ROM, normal capillary refill and no pedal edema General: no clubbing and no cyanosis Neuro Common normals: oriented x3, CN's II-XII intact bilaterally, moves all extremities, no focal motor deficits and no sensory deficits noted Sensorium/orientation: awake and alert Speech: speech normal Psych Common normals: mental status grossly normal and activity/motor behavior normal Appearance: grossly normal DS: Data Data Completed and Pending Labs on day of discharge: Labs from last 24 hours 07/17/23 07/16/23 04:47 21:00 WBC 5.5 RBC 3.20 L Hgb 10.1 L 9.9 L Hct 31.5 L 30.6 L MCV 98.4 MCH 31.6 MCHC 32.1 RDW 11.9 Plt Count 190 MPV 8.5 L Seg Neuts % (Manual) 55.0 Lymphocytes % (Manual) 35.0 Monocytes % (Manual) 6.0 Eosinophils % (Manual) 4.0 Basophils % (Manual) 0.0 L Neutrophils # (Manual) 3.02 Lymphocytes # (Manual) 1.92 Monocytes # (Manual) 0.33 Eosinophils # (Manual) 0.22 Basophils # (Manual) 0.00 Sodium 141 Potassium 3.3 L Chloride 107 Carbon Dioxide 27.3 Anion Gap 10.0 BUN 5.0 L Creatinine 0.82 Est GFR ( Amer) >60 Est GFR (Non-Af Amer) >60 BUN/Creatinine Ratio 6.1 Glucose 79 Calcium 8.3 L Total Bilirubin 0.3 AST 17 ALT 16 Alkaline Phosphatase 49 C-Reactive Protein 4.4 H Total Protein 5.1 L Albumin 2.6 L Globulin 2.5 Albumin/Globulin Ratio 1.0 Discharge Plan Discharge Disposition: Home, Self-Care Discharge Medications: New ciprofloxacin HCl [Cipro] 500 mg tablet 500 mg PO Q12H Qty: 14 0RF metronidazole 500 mg tablet 500 mg PO BID 7 Days Qty: 14 0RF Continued carvedilol 3.125 mg tablet 3.125 mg PO BID cholecalciferol (vitamin D3) 125 mcg (5,000 unit) capsule 125 mcg PO DAILY clotrimazole-betamethasone 1-0.05 % cream 1 applic TOPICAL DAILY lisinopril 2.5 mg tablet 2.5 mg PO DAILY Held aspirin [Adult Aspirin Regimen] 81 mg tablet,delayed release (DR/EC) 81 mg PO DAILY Hold Instructions: Resume on 07/24/23. Diet: other Diet Detail: Keep to a soft diet for 1 week, then resume normal diet Patient Instructions: Ciprofloxacin (By mouth), Metronidazole (By mouth), Soft Diet (DC), Colitis (ED) Forms: Portal Instructions Follow Up Appointments: Follow up appt. with Robyn Arroyo NP on Jul.22 @ 9:00am Office #: [phone] Follow up appt. with Dr. Gusman on . Jul.29 @ 11:00am [id number] Office #: [phone] Discharge Date/Time: 07/17/23 16:36
[2023-07-19 18:08] LABS: Calprotectin, Fecal 1600 ug/g (0-120)
--- NOTE | 2023-07-20 14:54 | CM.DCFOLLOWU ---
1st attempt discharge follow up call made by Ethan Fischer on 07/20/23, no answer at this time.
--- NOTE | 2023-07-21 13:15 | CM.DCFOLLOWU ---
Person spoke with: patient How are you feeling? not well, back pain. Her legs, ankles, and feet are swollen and gained 10 pounds, has not eaten since last Thursday How is your pain? in pain Did you understand your discharge instructions? yes Do you have any questions about your discharge instructions? no Were you given any prescriptions at discharge? yes Were you able to get your prescriptions filled? yes Do you understand how to take your medications as ordered? yes Do you have any questions about your follow up appointment and do you plan to keep your follow up appointment? no questions, has follow up tomorrow. Ptvoiced she had concerns about her swelling and possibly her kidneys and they fluid she has. Advised for her to come back to ER to get checked out if she does have true concerns. Pt voiced she will likely do that. Is there anything else that you would like to discuss? no Questions/Comments/Concerns/Other:
== END 2023-07-17 16:36 | disposition home or self-care (01) | DRG 392 ==
LOC: ER 07-15 03:01 → MS 07-15 06:58
PROVIDERS: Internal Medicine; Admitting Provider Family Medicine; Emergency Provider Internal Medicine; Visit Provider Nurse Practitioner
DX: A09 Infectious gastroenteritis and colitis, unspecified (principal); R11.10 Vomiting, unspecified; R10.30 Lower abdominal pain, unspecified; R09.02 Hypoxemia; T40.2X5A Adverse effect of other opioids, initial encounter; I10 Essential (primary) hypertension; I25.10 Atherosclerotic heart disease of native coronary artery without angina pectoris; F41.9 Anxiety disorder, unspecified; F10.10 Alcohol abuse, uncomplicated; Z87.891 Personal history of nicotine dependence; I25.2 Old myocardial infarction; Z79.899 Other long term (current) drug therapy; Z79.82 Long term (current) use of aspirin; Z90.49 Acquired absence of other specified parts of digestive tract; Z90.710 Acquired absence of both cervix and uterus; Z90.79 Acquired absence of other genital organ(s); Z90.722 Acquired absence of ovaries, bilateral
CPT/HCPCS: 36415; 74174; 80053; 83605; 83690; 83993; 84484; 85014; 85018; 85025; 85027; 85652; 86140; 87507; 94667; 94668; 94761; 96361; 96365; 96366; 96367; 96375; 96376; 99285; J1170; Q9967